=== PATIENT | female | born 1985 | race Asian ===

== ENCOUNTER 2025-03-07 13:23 | Outpatient (CLI) | payer OTHER, SELFPAY ==
--- NOTE | 2025-03-07 | ECHO_ITS ---
Patient Info Name: Hanna Adler Age: 40 years : 1985 Gender: Female Ht: 65 in Wt: 105 lbs BSA: 1.47 m2 HR: 62 bpm BP: 105 / 86 mmHg Technical Quality: Fair Exam Date: 03/07/2025 1:34 PM Patient Status: O Admit Date: 03/07/2025 Exam Type: CA echo doppler color flow Complete two-dimensional, color flow and Doppler transthoracic echocardiogram is performed. 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 Complete two-dimensional, color flow and Doppler transthoracic echocardiogram is performed. 2. The transthoracic echocardiogram is normal by two-dimensional, color flow imaging, and Doppler interrogation. Left Ventricle The left ventricle is normal in size and systolic function. The left ventricular ejection fraction is visually estimated to be 60-65%. There is normal diastolic function. Right Ventricle The right ventricle is normal in size and systolic function. Left Atria The left atrium is normal size. Right Atria The right atrium is normal size. Atrial Septum The atrial septum is normal. Aortic Valve The aortic valve is normal. Pulmonic Valve The pulmonic valve is normal. Mitral Valve The mitral valve is normal. Tricuspid Valve The tricuspid valve is normal. Pericardium/Pleural Pericardium is normal in appearance with no evidence for significant pericardial effusion. Inferior Vena Cava Normal inferior vena cava with >50% collapse upon inspiration consistent with normal right atrial pressure, 3 mmHg. Aorta The aortic root at the level of the sinus of Valsalva measures 2.5 cm in diameter. Left Ventricular Outflow Tract Name Value Normal LVOT 2D LVOT Diameter 1.6 cm LVOT Doppler LVOT Peak Velocity 78 cm/s LVOT Peak Gradient 2 mmHg LVOT Mean Gradient 1 mmHg LVOT VTI 19 cm LVOT Stroke Volume 41 ml LVOT CO 2.5 l/min LVOT CI 1.7 l/min/m2 Pulmonic Valve Name Value Normal RVOT Doppler RVOT Peak Velocity 65 cm/s RVOT Peak Gradient 2 mmHg PV Doppler PV Peak Velocity 72 cm/s PV Peak Gradient 2 mmHg Mitral Valve Name Value Normal MV Diastolic Function MV E Peak Velocity 82 cm/s MV A Peak Velocity 46 cm/s MV E/A 1.8 MV Decel Time (PW) 228 ms MV Annular TDI MV E/e' (Septal) 8.1 MV E/e' (Lateral) 6.3 MV E/e' (Average) 7.2 Tricuspid Valve Name Value Normal Estimated PAP/RSVP RA Pressure 3 mmHg <=5 Aortic Valve Name Value Normal AV Doppler AV Peak Velocity 100 cm/s AV Peak Gradient 4 mmHg AV Area (Cont Eq Raul) 1.7 cm2 AV DI (Raul) 0.78 AV Regurgitation 2D LVOT Area 2.1 cm2 Ventricles Name Value Normal LV Dimensions 2D/MM IVS Diastolic Thickness (2D) 0.6 cm 0.6-1.0 LVID Diastole (2D) 3.9 cm 3.8-5.2 LVIW Diastolic Thickness (2D) 0.6 cm 0.6-0.9 LVID Systole (2D) 2.2 cm 2.2-3.5 LVOT Diameter 1.6 cm LV Mass (2D Cubed) 66.21 g 67.00-162.00 LV Mass Index (2D Cubed) 45 g/m2 43-95 Relative Wall Thickness (2D) 0.33 <=0.42 LV Fractional Shortening/Ejection Fraction 2D/MM LV Fractional Shortening (2D) 42 % 27-45 LV EF (2D Teichholz) 74 % LV Diastolic Volume (4C MOD) 61 ml LV EF (4C MOD) 59 % LV Diastolic Volume (2C MOD) 60 ml LV EF (2C MOD) 83 % LV Diastolic Volume (BP MOD) 60 ml 46-106 LV Diastolic Volume Index (BP MOD) 41 ml/m2 29-61 LV Systolic Volume (BP MOD) 28 ml 14-42 LV Systolic Volume Index (BP MOD) 19 ml/m2 8-24 LV EF (BP MOD) 53 % 54-74 LV Diastolic Length (4C) 6.5 cm LV Systolic Length (4C) 5.7 cm LV Stroke Volume (4C MOD) 36 ml Atria Name Value Normal LA Dimensions LA Volume (4C A-L) 25 ml LA Volume (BP A-L) 32 ml RA Dimensions RA Area (4C) 8.6 cm2 <=18.0 Report Signatures
== END 2025-03-07 13:24 | disposition home or self-care (01) ==
PROVIDERS: PCP Internal Medicine; Visit Provider Internal Medicine
DX: R00.2 Palpitations (principal)
CPT/HCPCS: 93306